=== PATIENT | male | born 1965 | race Caucasian/White ===

== ENCOUNTER 2023-08-19 09:51 | Outpatient (CLI) | payer BC | END 2023-08-19 09:52 | disposition home or self-care (01) | LOC: CSHCT 09:51 | PROVIDERS: ATTEND Physician Assistant Medical | DX: M53.3 Sacrococcygeal disorders, not elsewhere classified (principal); K62.5 Hemorrhage of anus and rectum; R79.89 Other specified abnormal findings of blood chemistry | CPT/HCPCS: 74178 ==